=== PATIENT | female | born 1940 | race Two or more races ===

== ENCOUNTER 2016-12-07 13:51 | Inpatient (IN) | payer MEDICARE ==
[~2016-12-07] VITALS: Ht 152.4 cm; Wt 54.4 kg
--- NOTE | 2016-12-07 13:51 | NUR ---
BIB FAMILY FOR ADMISSION TO [facility], INCREASING AGITATION/AGGRESIVENESS PER FAMILY . GOWNED PT AWAITING MD ORDER
[2016-12-07] MEDS ORDERED: AMLO5TAB2 PO (14:15)
[2016-12-07] MEDS ORDERED: VALS80TA2 PO (14:15)
[2016-12-07] MEDS ORDERED: POTA10TA15 PO (14:15)
[2016-12-07] MEDS ORDERED: BUPR150T10 PO (14:15)
[2016-12-07] MEDS ORDERED: SERT100T PO (14:15)
[2016-12-07] MEDS ORDERED: LABE100T PO (14:15)
[2016-12-07] MEDS ORDERED: RISP0.253 PO (14:15)
[2016-12-07] MEDS ORDERED: MULT1TAB64 PO (14:15)
[2016-12-07] MEDS ORDERED: QUET25TA PO ×2 (14:15)
--- NOTE | 2016-12-07 14:15 | NUR ---
BOAT DESIGNER AT BEDSIDE FOR BLOOD DRAW
[2016-12-07 14:21] LABS: BASOPHILS % (AUTO) 0.5 % (0.0-2.0); EOSINOPHILS # (AUTO) 0.2 /CMM (0.0-0.7); EOSINOPHILS % (AUTO) 2.3 % (0.0-6.0); HEMATOCRIT 36 % (33-45); HEMOGLOBIN 11.9 g/dL (11.5-14.8); LYMPHOCYTES # (AUTO) 1.5 /CMM (0.8-4.8); LYMPHOCYTES % (AUTO) 20.3 % (20.0-44.0); MEAN CORPUSCULAR HEMOGLOBIN 29 PG (26.0-33.0); MEAN CORPUSCULAR HGB CONC 33 g/dl (31.0-36.0); MEAN CORPUSCULAR VOLUME 87 fL (82-100); MONOCYTES # (AUTO) 0.6 /CMM (0.1-1.30); MONOCYTES % (AUTO) 7.8 % (2.0-12.0); NEUTROPHILS # (AUTO) 5.1 /CMM (1.8-8.9); NEUTROPHILS % (AUTO) 69.1 % (43.0-81.0); PLATELET COUNT (AUTO) 260 /CMM (150-450); RDW COEFFICIENT OF VARIATION 13.3 (11.5-15.0); WHITE BLOOD COUNT (AUTO) 7.4 K/uL (4.3-11.0)
[2016-12-07 14:30] LABS: CALCIUM, SERUM 9.2 mg/dL (8.5-10.1); CARBON DIOXIDE 34 mmol/L (21-32); CHLORIDE 107 mmol/L (98-107); CREATININE 0.9 mg/dL (0.6-1.3); GLUCOSE 97 mg/dL (74-106); SODIUM SERUM 144 mmol/L (136-145); UREA NITROGEN, BLOOD 14 mg/dL (7-18)
--- NOTE | 2016-12-07 14:40 | NUR ---
URINE SAMPLE COLLECTED SENT TO LAB
[2016-12-07 14:43] LABS: ALANINE AMINOTRANSFERASE 18 U/L (12-78); ALBUMIN 3.5 g/dL (3.4-5.0); ALCOHOL, BLOOD < 3 mg/dL (0-0); ALKALINE PHOSPHATASE 78 U/L (46-116); ASPARTATE AMINOTRANSFERASE 13 U/L (15-37); BILIRUBIN,DIRECT 0.1 mg/dL (0.0-0.2); BILIRUBIN,TOTAL 0.3 mg/dL (0.2-1.0); TOTAL PROTEIN, SERUM 6.4 g/dL (6.4-8.2)
[2016-12-07 14:45] LABS: APPEARANCE,URINE Slightly Cloudy (CLEAR); BILIRUBIN,URINE Negative (NEGATIVE); BLOOD, URINE Negative Ery/uL (NEGATIVE); COLOR,URINE Yellow (YELLOW); KETONES,URINE Trace (NEGATIVE); LEUKOCYTE ESTERASE ,URINE Moderate (NEGATIVE); NITRITE, URINE Negative (NEGATIVE); PH,URINE 6.5 (5.0-8.0); PROTEIN,URINE Negative (NEGATIVE); UGLUCOSE Negative (NEGATIVE); UROBILINOGEN,URINE 0.2 EU/dL (0.2)
[2016-12-07 14:47] LABS: ACETAMINOPHEN 0 ug/ml (10-30); SALICYLATE 1.2 mg/dL (2.8-20.0)
[2016-12-07 14:53] LABS: BACTERIA,URINE Many /HPF (None Seen); RBC,URINE 0-2 /HPF (0-2); SQUAMOUS EPITHELIAL CELL,UR Many /HPF (None Seen); WBC,URINE 21-50 /HPF (0-3)
--- NOTE | 2016-12-07 14:54 | NUR ---
CALLED [facility] FOR PSYCH EVAL, ETA WITHIN THE HOUR
--- NOTE | 2016-12-07 16:02 | NUR ---
SPENCER AT BEDSIDE FOR PSYCH EVAL
[2016-12-07] MEDS ORDERED: CEPHALEXIN MONOHYDRATE 500 MG CAPSULE PO ONE ×2 (16:48→17:00)
--- NOTE | 2016-12-07 17:02 | NUR ---
REPORT GIVEN TO JOANN ELDRIDGE. ADMITTING MD DR BAILEY PSYCH DR BUSTILLO. CARMENER VIA .
[2016-12-07] MEDS ORDERED: MAGNESIUM HYDROXIDE 30 ML UDC PO PRN (17:30)
[2016-12-07] MEDS ORDERED: MAG HYDROX/AL HYDROX/SIMETH 30 ML UDC PO PRN (17:30)
--- NOTE | 2016-12-07 18:00 | NUR ---
GPS RN: ADMITTED PATIENT FROM THE ER, ARRIVED TO THE FLOOR AROUND 1715 IN THE WHEELCHAIR, ACCOMPANIED BY THE SON AND [id number]. PATIENT IS ON HOLD FOR DANGER TO OTHERS AND GRAVE DISABILITY (SEE HOLD DOCUMENT FOR DETAILS). PATIENT IS A/OX1, MILDLY ANXIOUS, HOWEVER, COOPERATIVE. BELONGINGS CHECKED FOR CONTRABAND. DR. BUSTILLO NOTIFIED AND ADMITTING ORDERS RECEIVED. DR. BAILEY MADE AWARE TO RECONCILE MEDS, AWAITING CALL BACK. PATIENT ORIENTED TO THE UNIT AND HER ROOM, PROVIDED WITH CALM AND SAFE ENVIRONMENT. WILL CONTINUE TO MONITOR THE PATIENT AND ENDORSE TO THE UPCOMING NURSE.
[2016-12-07 18:38] VITALS: BP 129/64
--- NOTE | 2016-12-07 19:25 | NUR ---
GPS RN: ENDORSED THE RIVET BUCKER NURSE TO FOLLOW UP ON MEDICATION RECONCILIATION.
[2016-12-07 20:00] VITALS: BP 143/72
[2016-12-07] MEDS: LORAZEPAM 0.5 MG TABLET PO PRN (20:16)
[2016-12-07] MEDS: ZOLPIDEM TARTRATE 5 MG TABLET PO PRN (21:55)
--- NOTE | 2016-12-08 06:09 | NUR ---
PAGED TWICE TO [facility] SPECIAL EVENT ASSISTANT FOR MED RECON REPLY AND SAID I WILL DO IT GIVE ME SOME TIME, STILL AWAITING FOR TO RECONCILE THE MEDICATION WILL ENDORSE TO THE INCOMING NURSE.
[2016-12-08 08:00] VITALS: BP 141/91
--- NOTE | 2016-12-08 12:57 | NUR ---
RN-CO: DR BUSTILLO ORDERED LINE OF SIGHT FOR THE PATIENT.
[2016-12-08] MEDS: CEPHALEXIN MONOHYDRATE 500 MG CAPSULE PO SCH ×2 (14:02→21:37)
[2016-12-08 14:53] LABS: ALANINE AMINOTRANSFERASE 24 U/L (12-78); ALBUMIN 4.1 g/dL (3.4-5.0); ALKALINE PHOSPHATASE 83 U/L (46-116); ASPARTATE AMINOTRANSFERASE 17 U/L (15-37); BILIRUBIN,TOTAL 0.4 mg/dL (0.2-1.0); CALCIUM, SERUM 9.4 mg/dL (8.5-10.1); CARBON DIOXIDE 27 mmol/L (21-32); CHLORIDE 102 mmol/L (98-107); CREATININE 0.7 mg/dL (0.6-1.3); GLUCOSE 87 mg/dL (74-106); POTASSIUM 3.6 mmol/L (3.5-5.1); SODIUM SERUM 143 mmol/L (136-145); TOTAL PROTEIN, SERUM 7.2 g/dL (6.4-8.2); UREA NITROGEN, BLOOD 17 mg/dL (7-18)
--- NOTE | 2016-12-08 15:30 | NUR ---
Initial Discharge Note: Patient resides [facility] [address] [facility] [address] ([phone]). bilingual patient support caseworker attempted to contact patient's daughter Mara Kumar and patient's son Lalito Kumar . However, ther were unavailable. Sw left both a detailed message with her direct contact information and will attempt again later. Emanuel spoke to Genet from the facility who stated that patient can return upon discharge. Sw will help form a safe and proper discharge.
[2016-12-08 16:00] VITALS: BP 107/64
[2016-12-08] MEDS: QUETIAPINE FUMARATE 25 MG TABLET PO SCH ×2 (16:52→21:37)
[2016-12-08] MEDS: LORAZEPAM 0.5 MG TABLET PO PRN (16:52)
--- NOTE | 2016-12-08 19:30 | NUR ---
GPS RN NOTE, RECEIVED PATIENT AWAKE AND IN BED, NO S/S OR COMPLAINTS OF PAIN AT THIS TIME. PATIENT IS DISPLAYING NO S/S OF APPARENT DISTRESS AT THIS TIME. PATIENT BREATHING IS UNLABORED WITH EQUAL RISE AND FALL OF THE CHEST. PATIENT IS ALERT AND ORIENTED X 2 ON ROOM AIR WITH A SPO2 96%. PATIENT SELECTIVE WITH MEDICATION, ANXIOUS, UNCOOPERATIVE AT TIMES, DELUSIONAL AT TIMES, AND NEEDS REORIENTATION. PATIENT DENIES SUICIDE AND HOMICIDAL IDEATIONS AT THIS TIME. PATIENT ASSISTED WITH TURNING AND REPOSITIONING Q2HR AND PRN FOR COMFORT AND CIRCULATION. PATIENT HAS NO NEEDS AT THIS TIME. PATIENT EDUCATED ON THE USE OF THE CALL CARRANZA. PATIENT BED SIDE RAILS UP X2 FOR SAFETY, BED IS LOCKED AND LOW WILL CONTINUE TO MONITOR AND MAINTAIN SAFETY.
[2016-12-08 20:00] VITALS: BP 132/75
[2016-12-08] MEDS: LABETALOL HCL (100MG) 100 MG TABLET PO SCH (21:38)
[2016-12-09 08:00] VITALS: BP 111/59
[2016-12-09 08:11] LABS: CHOLESTEROL 236 mg/dL (<200); HDL CHOLESTEROL 63 mg/dL (40-60); LDL 155 mg/dL (0-99); TRIGLYCERIDES 85 mg/dL (30-150)
[2016-12-09] MEDS ORDERED: MULTIPLE VIT (LYCOPENE/FA/MV,CA,IRON,MIN/LUT)1 TAB PO SCH (09:00)
[2016-12-09] MEDS ORDERED: AMLODIPINE BESYLATE 5 MG TABLET PO SCH (09:00)
[2016-12-09] MEDS ORDERED: BUPROPION XL 150 MG TAB.ER.24 PO SCH (09:00)
[2016-12-09] MEDS: MULTIPLE VIT (LYCOPENE/FA/MV,CA,IRON,MIN/LUT)1 TAB PO SCH ×2 (09:00→15:28)
[2016-12-09] MEDS ORDERED: VALSARTAN 80 MG TABLET PO SCH (09:00)
[2016-12-09] MEDS: BUPROPION XL 150 MG TAB.ER.24 PO SCH ×2 (09:00→15:26)
[2016-12-09] MEDS: CEPHALEXIN MONOHYDRATE 500 MG CAPSULE PO SCH ×2 (09:00→21:33)
[2016-12-09] MEDS: VALSARTAN 80 MG TABLET PO SCH ×2 (09:00→15:26)
[2016-12-09] MEDS: QUETIAPINE FUMARATE 25 MG TABLET PO SCH ×2 (09:00→21:33)
[2016-12-09] MEDS: LABETALOL HCL (100MG) 100 MG TABLET PO SCH ×2 (09:00→15:51)
[2016-12-09] MEDS: AMLODIPINE BESYLATE 5 MG TABLET PO SCH ×2 (09:00→15:25)
[2016-12-09] MEDS: ACETAMINOPHEN 325 MG TABLET PO PRN (15:32)
--- NOTE | 2016-12-09 15:39 | NUR ---
GPS RN: PATIENT IS AWAKE AT THIS TIME, SITTING IN THE CHAIR IN THE ACTIVITY ROOM. PATIENT IS WITH MILD ANXIETY AND RESTLESSNESS, ABLE TO REDIRECT AT THIS TIME. PATIENT'S BP 158/85, DAILY MEDS ADMINISTERED AT THIS TIME, ALSO ADMINISTERED TYLENOL 650MG FOR C/O PAIN ON BOTH SHOULDERS, PATIENT UNABLE TO SCALE. INSTRUCTED ON RELAXATION TECHNIQUE AND PROVIDED WITH SAFE AND CALM ENVIRONMENT, KEPT CLEAN AND COMFORTABLE, CONTINUE TO MONITOR THE PATIENT.
[2016-12-09 16:00] VITALS: BP 142/68
--- NOTE | 2016-12-09 16:16 | NUR ---
GPS RN: PATIENT IS SITTING COMFORTABLY IN THE CHARITY-CHAIR, DOSING INTERMITTENTLY, CALM AND QUIET AT THIS TIME. NO S/S OF ACUTE DISTRESS, VSS STABLE, BP 148/68, HR 91, RR 19, T98.6, O2 2AT 97% @ ROOM AIR. CONTINUE TO MONITOR THE PATIENT AND PROVIDE SAFE ENVIRONMENT.
[2016-12-09 20:00] VITALS: BP 128/76
[2016-12-09] MEDS: ZOLPIDEM TARTRATE 5 MG TABLET PO PRN (21:33)
[2016-12-10 08:00] VITALS: BP 139/76
[2016-12-10] MEDS: CEPHALEXIN MONOHYDRATE 500 MG CAPSULE PO SCH (08:51)
[2016-12-10] MEDS: LABETALOL HCL (100MG) 100 MG TABLET PO SCH ×2 (08:52→21:00)
[2016-12-10] MEDS ORDERED: QUETIAPINE FUMARATE 25 MG TABLET PO SCH (09:00)
[2016-12-10 16:00] VITALS: BP 140/74
[2016-12-10] MEDS: NITROFURANTOIN/NITROFURAN MAC 100 MG CAPSULE PO SCH (16:58)
[2016-12-10] MEDS ORDERED: AMPICILLIN TRIHYDRATE 250 MG CAPSULE PO SCH (17:00)
[2016-12-10] MEDS: LORAZEPAM 0.5 MG TABLET PO PRN (19:47)
[2016-12-10 20:00] VITALS: BP 153/95
[2016-12-10] MEDS: QUETIAPINE FUMARATE 25 MG TABLET PO SCH (21:35)
--- NOTE | 2016-12-11 01:15 | NUR ---
Pt has been fragmented, confused, hyperverbal, loud, difficult to redirect, trying to AWOL, & quite anxious. She needed lots of promptings to take her noc po meds last night.
[2016-12-11] MEDS: NITROFURANTOIN/NITROFURAN MAC 100 MG CAPSULE PO SCH ×2 (05:00→16:50)
[2016-12-11] MEDS: VALSARTAN 80 MG TABLET PO SCH (08:21)
[2016-12-11] MEDS: MULTIPLE VIT (LYCOPENE/FA/MV,CA,IRON,MIN/LUT)1 TAB PO SCH (08:21)
[2016-12-11] MEDS: LORAZEPAM 0.5 MG TABLET PO PRN ×2 (08:21→18:28)
[2016-12-11] MEDS: BUPROPION XL 150 MG TAB.ER.24 PO SCH (08:22)
[2016-12-11] MEDS: AMLODIPINE BESYLATE 5 MG TABLET PO SCH (08:22)
[2016-12-11] MEDS: LABETALOL HCL (100MG) 100 MG TABLET PO SCH ×2 (08:25→22:27)
--- NOTE | 2016-12-11 08:30 | NUR ---
GPS/RN PATIENT AGITATED, ANXIOUS, SCREAMING, CRYING, ADMINISTERED ATIVAN PO ORDERED, WILL CONTINUE TO MONITOR.
[2016-12-11] MEDS ORDERED: QUETIAPINE FUMARATE 25 MG TABLET PO SCH (09:00)
[2016-12-11 09:15] VITALS: BP 129/69
[2016-12-11] MEDS: ACETAMINOPHEN 325 MG TABLET PO PRN (09:33)
--- NOTE | 2016-12-11 11:21 | NUR ---
die lay out worker spoke to patient's daughter Mara Kumar ([phone]) who stated that she would like her mother to return to [facility] [address] [facility] [address] ([phone]). Patient's daughter Mara was contempt with the information she was provided and stated that more than likely her brother Lalito Kumar ([phone]) will pick her up and take her back to [facility]. Sw will follow-up with patient's son Lalito Kumar ([phone]).
[2016-12-11 16:04] VITALS: BP 133/73
--- NOTE | 2016-12-11 18:29 | NUR ---
GPS/RN PATIENT AGITATED, ANXIOUS, YELLING INTERMITTENTLY, ADMINISTERED ATIVAN PO ORDERED, WILL CONTINUE TO MONITOR.
[2016-12-11 19:43] VITALS: BP 139/105
[2016-12-11] MEDS: ZOLPIDEM TARTRATE 5 MG TABLET PO PRN (21:24)
[2016-12-11] MEDS: QUETIAPINE FUMARATE 25 MG TABLET PO SCH (22:26)
[2016-12-12] MEDS: NITROFURANTOIN/NITROFURAN MAC 100 MG CAPSULE PO SCH ×2 (04:17→16:37)
[2016-12-12 08:00] VITALS: BP 149/86
[2016-12-12] MEDS: BUPROPION XL 150 MG TAB.ER.24 PO SCH (08:22)
[2016-12-12] MEDS: VALSARTAN 80 MG TABLET PO SCH (08:23)
[2016-12-12] MEDS: LABETALOL HCL (100MG) 100 MG TABLET PO SCH ×2 (08:23→20:42)
[2016-12-12] MEDS: MULTIPLE VIT (LYCOPENE/FA/MV,CA,IRON,MIN/LUT)1 TAB PO SCH (08:23)
[2016-12-12] MEDS: AMLODIPINE BESYLATE 5 MG TABLET PO SCH (08:24)
[2016-12-12] MEDS: LORAZEPAM 0.5 MG TABLET PO PRN (10:34)
--- NOTE | 2016-12-12 14:40 | NUR ---
Sw attempted to contact patient's son Lalito Kumar ([phone]) however, he was unavailable. Sw left him a detailed message with Sw direct contact information. Emanuel will follow-up.
[2016-12-12 16:00] VITALS: BP_SYST 122; BP_SYST 128; BP_DIAS 70; BP_DIAS 89
[2016-12-12 20:00] VITALS: BP 149/72
[2016-12-12 20:28] VITALS: BP 149/72
[2016-12-12] MEDS: QUETIAPINE FUMARATE 25 MG TABLET PO SCH (21:04)
[2016-12-13] MEDS: ZOLPIDEM TARTRATE 5 MG TABLET PO PRN (01:55)
[2016-12-13] MEDS: NITROFURANTOIN/NITROFURAN MAC 100 MG CAPSULE PO SCH ×2 (05:08→10:20)
--- NOTE | 2016-12-13 07:30 | NUR ---
received pt. alert and orientedx1.has 1:1 sitter.
[2016-12-13 08:00] VITALS: BP 152/70
--- NOTE | 2016-12-13 09:58 | NUR ---
Sw spoke to patient's son Lalito Kumar ([phone]) who confirmed that he will be picking up the patient and taking her back to [facility] [address] [facility] [address] ([phone]). Patient's son requested to speak to patient's assigned psychiatrist Dr. Courtney. Sw informed assigned psychiatrist Dr. Courtney. Emanuel will follow-up
[2016-12-13] MEDS: LABETALOL HCL (100MG) 100 MG TABLET PO SCH ×2 (10:20→21:16)
[2016-12-13] MEDS: BUPROPION XL 150 MG TAB.ER.24 PO SCH (10:21)
[2016-12-13] MEDS: MULTIPLE VIT (LYCOPENE/FA/MV,CA,IRON,MIN/LUT)1 TAB PO SCH (10:21)
[2016-12-13] MEDS: VALSARTAN 80 MG TABLET PO SCH (10:21)
[2016-12-13] MEDS: ACETAMINOPHEN 325 MG TABLET PO PRN (11:35)
[2016-12-13] MEDS: LORAZEPAM 0.5 MG TABLET PO PRN (11:43)
--- NOTE | 2016-12-13 12:17 | NUR ---
Emanuel spoke to Sara from the facility [facility] [address] [facility] [address] ([phone]) who stated that patient can return to the facility on Sunday and requested an update Sunday. Emanuel will follow-up.
[2016-12-13] MEDS: AMLODIPINE BESYLATE 5 MG TABLET PO SCH ×2 (12:18→12:21)
--- NOTE | 2016-12-13 12:22 | NUR ---
yelling out with discomfort,states some rt. sided pain,determined is her stomach.medicated with tylenol,ativan and maalox.sitter close-by.
--- NOTE | 2016-12-13 12:24 | NUR ---
vs taken bp140/74 heart rate 74,pox 99%.now given daily norvasc.
--- NOTE | 2016-12-13 13:00 | NUR ---
dr. sy in to see pt.
[2016-12-13 16:00] VITALS: BP 145/80
--- NOTE | 2016-12-13 18:16 | NUR ---
yelling out from time to time.
[2016-12-13 20:32] VITALS: BP 143/82
[2016-12-13] MEDS ORDERED: QUETIAPINE FUMARATE 25 MG TABLET PO SCH (22:00)
[2016-12-14] MEDS: NITROFURANTOIN/NITROFURAN MAC 100 MG CAPSULE PO SCH ×2 (05:02→16:02)
[2016-12-14 08:00] VITALS: BP 145/75
[2016-12-14] MEDS: LABETALOL HCL (100MG) 100 MG TABLET PO SCH ×2 (09:27→21:41)
[2016-12-14] MEDS: VALSARTAN 80 MG TABLET PO SCH (09:27)
[2016-12-14] MEDS: MULTIPLE VIT (LYCOPENE/FA/MV,CA,IRON,MIN/LUT)1 TAB PO SCH (09:28)
[2016-12-14] MEDS: BUPROPION XL 150 MG TAB.ER.24 PO SCH (09:28)
[2016-12-14] MEDS: AMLODIPINE BESYLATE 5 MG TABLET PO SCH (09:29)
[2016-12-14] MEDS: LORAZEPAM 0.5 MG TABLET PO PRN ×2 (15:33→23:50)
[2016-12-14 16:00] VITALS: BP 145/88
--- NOTE | 2016-12-14 16:27 | NUR ---
Sw spoke to patient's son Lalito Kumar ([phone]) who confirmed that he will garbage pick up man patient at 11:30am.
--- NOTE | 2016-12-14 20:00 | NUR ---
GPS RN NOTES PT REFUSED TO HAVE VS TAKEN
[2016-12-14] MEDS: ATORVASTATIN 10 MG TABLET PO SCH (21:40)
[2016-12-14] MEDS: ZOLPIDEM TARTRATE 5 MG TABLET PO PRN (21:43)
[2016-12-14] MEDS ORDERED: QUETIAPINE FUMARATE 100 MG TABLET PO SCH (22:00)
[2016-12-15] MEDS: NITROFURANTOIN/NITROFURAN MAC 100 MG CAPSULE PO SCH ×2 (05:47→16:09)
[2016-12-15 08:00] VITALS: BP 142/69
[2016-12-15] MEDS: AMLODIPINE BESYLATE 5 MG TABLET PO SCH (08:12)
[2016-12-15] MEDS: BUPROPION XL 150 MG TAB.ER.24 PO SCH (08:13)
[2016-12-15] MEDS: MULTIPLE VIT (LYCOPENE/FA/MV,CA,IRON,MIN/LUT)1 TAB PO SCH (08:13)
[2016-12-15] MEDS: VALSARTAN 80 MG TABLET PO SCH (08:13)
[2016-12-15] MEDS: LABETALOL HCL (100MG) 100 MG TABLET PO SCH ×2 (08:13→21:36)
[2016-12-15 10:58] LABS: BASOPHILS % (AUTO) 0.4 % (0.0-2.0); EOSINOPHILS # (AUTO) 0.2 /CMM (0.0-0.7); EOSINOPHILS % (AUTO) 2.5 % (0.0-6.0); HEMATOCRIT 35 % (33-45); LYMPHOCYTES # (AUTO) 1.3 /CMM (0.8-4.8); LYMPHOCYTES % (AUTO) 15.7 % (20.0-44.0); MEAN CORPUSCULAR HEMOGLOBIN 30 PG (26.0-33.0); MEAN CORPUSCULAR HGB CONC 35 g/dl (31.0-36.0); MEAN CORPUSCULAR VOLUME 86 fL (82-100); MONOCYTES # (AUTO) 0.6 /CMM (0.1-1.30); MONOCYTES % (AUTO) 7.5 % (2.0-12.0); NEUTROPHILS # (AUTO) 6.1 /CMM (1.8-8.9); NEUTROPHILS % (AUTO) 73.9 % (43.0-81.0); PLATELET COUNT (AUTO) 288 /CMM (150-450); RDW COEFFICIENT OF VARIATION 13.4 (11.5-15.0); RED BLOOD CELL COUNT(AUTO) 4.02 MIL/uL (4.0-5.2); WHITE BLOOD COUNT (AUTO) 8.2 K/uL (4.3-11.0)
[2016-12-15 11:31] LABS: ALANINE AMINOTRANSFERASE 21 U/L (12-78); ALBUMIN 3.6 g/dL (3.4-5.0); ALKALINE PHOSPHATASE 81 U/L (46-116); ASPARTATE AMINOTRANSFERASE 11 U/L (15-37); BILIRUBIN,TOTAL 0.4 mg/dL (0.2-1.0); CALCIUM, SERUM 9.3 mg/dL (8.5-10.1); CARBON DIOXIDE 32 mmol/L (21-32); CHLORIDE 106 mmol/L (98-107); CREATININE 0.7 mg/dL (0.6-1.3); GLUCOSE 131 mg/dL (74-106); POTASSIUM 3.1 mmol/L (3.5-5.1); SODIUM SERUM 145 mmol/L (136-145); TOTAL PROTEIN, SERUM 6.6 g/dL (6.4-8.2); UREA NITROGEN, BLOOD 15 mg/dL (7-18)
--- NOTE | 2016-12-15 11:58 | NUR ---
gps leather stripping machine operator: tadeo manuel (ancp) notified re: k+=3.1 with t.o. to give potassium chloride 40meq po x 1. order read back and carried out and acknowledged.
[2016-12-15] MEDS ORDERED: POTASSIUM CHLORIDE 20 MEQ TAB.PRT.SR PO ONE (12:00)
[2016-12-15] MEDS: ACETAMINOPHEN 325 MG TABLET PO PRN (13:42)
[2016-12-15] MEDS: LORAZEPAM 0.5 MG TABLET PO PRN (13:42)
[2016-12-15 16:00] VITALS: BP 120/72
--- NOTE | 2016-12-15 19:42 | NUR ---
GPS/RN NOTE: PATIENT IS CONFUSED, HAS 1:1 SITTER FOR SAFETY. PATIENT AMBULATES WITH HER SITTER. CALM, QUIET. WILL CONTINUE TO MONITOR Q 15 MINS. FOR SAFETY AND BEHAVIOR.
[2016-12-15 20:00] VITALS: BP 146/71
[2016-12-15] MEDS: ATORVASTATIN 10 MG TABLET PO SCH (21:36)
[2016-12-15] MEDS: QUETIAPINE FUMARATE 100 MG TABLET PO SCH (21:37)
[2016-12-16] MEDS: NITROFURANTOIN/NITROFURAN MAC 100 MG CAPSULE PO SCH ×2 (05:37→16:31)
[2016-12-16 08:00] VITALS: BP 138/56
[2016-12-16] MEDS: LABETALOL HCL (100MG) 100 MG TABLET PO SCH ×2 (09:53→20:45)
[2016-12-16] MEDS: AMLODIPINE BESYLATE 5 MG TABLET PO SCH (09:53)
[2016-12-16] MEDS: MULTIPLE VIT (LYCOPENE/FA/MV,CA,IRON,MIN/LUT)1 TAB PO SCH (09:53)
[2016-12-16] MEDS: BUPROPION XL 150 MG TAB.ER.24 PO SCH (09:53)
[2016-12-16] MEDS: VALSARTAN 80 MG TABLET PO SCH (09:54)
[2016-12-16] MEDS: ACETAMINOPHEN 325 MG TABLET PO PRN (12:46)
--- NOTE | 2016-12-16 12:46 | NUR ---
GPS RN: PATIENT C/O PAIN TO GENERALIZED PAIN, UNABLE TO RATE. NO S/S OF DISTRESS, PATIENT IS SOMEWHAT RESTLESS AND ANXIOUS, HOWEVER, COOPERATIVE AT THIS TIME. ADMINISTERED TYLENOL 650MG PO ORDERED, WILL CONTINUE TO MONITOR.
[2016-12-16 16:00] VITALS: BP 114/66
--- NOTE | 2016-12-16 19:43 | NUR ---
GPS/RN NOTE: PATIENT LYING IN BED, AWAKE, ALERT, CONFUSED. NO APPARENT DISTRESS NOTED. HAS 1:1 SITTER FOR SAFETY.
[2016-12-16 20:00] VITALS: BP 151/63
[2016-12-16] MEDS: ATORVASTATIN 10 MG TABLET PO SCH (20:46)
[2016-12-16] MEDS: QUETIAPINE FUMARATE 100 MG TABLET PO SCH (20:46)
[2016-12-16] MEDS: ZOLPIDEM TARTRATE 5 MG TABLET PO PRN (20:59)
--- NOTE | 2016-12-16 22:24 | NUR ---
GPS/RN NOTE: Patient asleep at this time. Sleeping pill effective.
[2016-12-16] MEDS: LORAZEPAM 0.5 MG TABLET PO PRN (23:25)
--- NOTE | 2016-12-16 23:27 | NUR ---
GPS/RN NOTE: PATIENT AWAKE, ANXIOUS, CONFUSED, YELLS AND SCREAMS, LORAZEPAM 1 MG TAB PO GIVEN.
[2016-12-17] MEDS: NITROFURANTOIN/NITROFURAN MAC 100 MG CAPSULE PO SCH ×2 (05:54→16:47)
[2016-12-17 08:00] VITALS: BP 130/71
[2016-12-17] MEDS: BUPROPION XL 150 MG TAB.ER.24 PO SCH (09:31)
[2016-12-17] MEDS: MULTIPLE VIT (LYCOPENE/FA/MV,CA,IRON,MIN/LUT)1 TAB PO SCH (09:31)
[2016-12-17] MEDS: LABETALOL HCL (100MG) 100 MG TABLET PO SCH ×2 (09:31→21:43)
[2016-12-17] MEDS: VALSARTAN 80 MG TABLET PO SCH (09:31)
[2016-12-17] MEDS: AMLODIPINE BESYLATE 5 MG TABLET PO SCH (09:32)
[2016-12-17] MEDS: LORAZEPAM 0.5 MG TABLET PO PRN (14:00)
[2016-12-17 16:00] VITALS: BP_SYST 138; BP_DIAS 63; BP_DIAS 83
--- NOTE | 2016-12-17 19:16 | NUR ---
GPS/RN NOTE: INITIAL ROUNDING, PATIENT WAS LYING QUIETLY IN BED, NO APPARENT DISTRESS NOTED. 1:1 SITTER AT THE BEDSIDE FOR SAFETY.
[2016-12-17 20:15] VITALS: BP 147/82
[2016-12-17] MEDS: ATORVASTATIN 10 MG TABLET PO SCH (21:43)
[2016-12-17] MEDS ORDERED: QUETIAPINE FUMARATE 25 MG TABLET PO SCH (22:00)
[2016-12-18] MEDS: NITROFURANTOIN/NITROFURAN MAC 100 MG CAPSULE PO SCH (05:04)
[2016-12-18 08:00] VITALS: BP 147/60
[2016-12-18] MEDS: MULTIPLE VIT (LYCOPENE/FA/MV,CA,IRON,MIN/LUT)1 TAB PO SCH (08:16)
[2016-12-18] MEDS: BUPROPION XL 150 MG TAB.ER.24 PO SCH (08:16)
[2016-12-18] MEDS: VALSARTAN 80 MG TABLET PO SCH (08:16)
[2016-12-18] MEDS: AMLODIPINE BESYLATE 5 MG TABLET PO SCH (08:16)
[2016-12-18 08:17] VITALS: BP 147/60
[2016-12-18] MEDS: LABETALOL HCL (100MG) 100 MG TABLET PO SCH (08:17)
[2016-12-18] MEDS: LORAZEPAM 0.5 MG TABLET PO PRN (08:19)
--- NOTE | 2016-12-18 10:30 | NUR ---
GPS RN NOTE CALLED RN [facility] AND NOTIFIED OF PATIENT DC. AGREEABLE AND OBTAINED DC MEDICATION ORDERS OVER PHONE.
--- NOTE | 2016-12-18 10:51 | NUR ---
Discharge Note: Patient will be discharged to [facility] [address] [facility] [address] ([phone]). Patients son Lalito Kumar ([phone]) was notified and will pick her up via private vehicle. Patient's son was agreeable with the discharge plan. Patient's mood and affect are appropriate. Patient denies suicidal and homicidal ideations. Patient was referred to [facility]: [facility] [address] [place] [address] ([phone]) Patient's son agreed to follow-up. Facilitated info to IDT team who are in agreement with discharge arrangement. The multidisciplinary exitcare form was done, printed, signed, and given to the patient.
--- NOTE | 2016-12-18 11:13 | NUR ---
GPS RN NOTES [facility]ED [facility] AND OBTAINED PATIENT PHARMACY INFORMATION. CALLED PHARMACY AND OBTAINED FAX #. FAXED RX TO [phone]
--- NOTE | 2016-12-18 11:30 | NUR ---
GPS DISCHARGE 76 YEAR OLD FEMALE DISCHARGED TO [facility] IN STABLE CONDITION. COMPLIANT WITH MEDICATIONS, COOPERATIVE WITH TREATMENT PLANS. PATIENT DENIES SI/HI AND INSTRUCTED TO GO TO THE CLOSEST ER IF DEVELOPING SI/HI. SON AT BEDSIDE EDUCATED WELL AT PATIENT SIDE. BEHAVIOR IMPROVED, PSYCHIATRIC TX PLANS MET, MEDICAL PLANS DEFERRED FOR CONTINUAL MONITORING. EDUCATED PATIENT AND SON ABOUT AFTER CARE PLAN (EXITCARE ) AND COPY PROVIDED. RETURNED PERSONAL BELONGINGS TO PATIENT. MEDICATIONS RECONCILED WITH DR BUSTILLO AND [facility] . PATIENT UNABLE TO SIGN DC MATERIAL DUE TO ALOC; 2 RN SIGNED. PATIENT LEFT UNIT AT 1130 WITH REPAIRER AND CHECKER AND SON AT SIDE TO PRIVATE [employer]
== END 2016-12-18 11:30 | DRG 885 ==
LOC: ER 13:54 → GPS 16:49
PROVIDERS: ADMIT Psychiatry & Neurology Psychiatry; ATTEND Psychiatry & Neurology Psychiatry
DX: F29 Unspecified psychosis not due to a substance or known physiological condition (principal); B95.2 Enterococcus as the cause of diseases classified elsewhere; F03.91 Unspecified dementia, unspecified severity, with behavioral disturbance; N39.0 Urinary tract infection, site not specified; I10 Essential (primary) hypertension; F39 Unspecified mood [affective] disorder
CPT/HCPCS: 36415; 80048-TC; 80053-TC; 80061-TC; 80076-TC; 80305; 81000-TC; 85025-TC; 87081-TC; 87086-TC; 87186-TC; A4606; G0480; Z7610